=== PATIENT | female | born 1945 | race Caucasian/White ===

== ENCOUNTER 2025-03-04 09:54 | Emergency (ER) | payer MEDICARE, OTHER, SELFPAY ==
[2025-03-04 09:59] VITALS: BP 160/88
[2025-03-04 10:07] VITALS: BP 145/89; BMI 21.2
[2025-03-04] MEDS: TYLENOL 1000 MG PO (10:59)
[2025-03-04] MEDS: ADACEL 0.5 ML IM (10:59)
[2025-03-04] MEDS: KEFLEX 500 MG PO (10:59)
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
--- NOTE | 2025-03-04 12:28 | EDCM ---
Received consult and reviewed chart. I met with pt and her bedside in ED. Pt has a lrg wound and will need follow up wound care. I asked if they leave the home, said very rarely. Discussed wound care center but they would prefer VN,
agreeable to referral for [facility]. Referral placed in Care Port.
They recently moved from [place] to [facility], they have seen Dr. Yamileth Charles from [facility]. Pt's does not feel comfortable doing dressing changes.
== END 2025-03-04 12:37 | disposition home or self-care (01) ==
LOC: EMR 09:54
PROVIDERS: EMERGENCY PHYSICIAN Emergency Medicine
DX: S81.811A Laceration without foreign body, right lower leg, initial encounter (principal); S80.11XA Contusion of right lower leg, initial encounter; I73.9 Peripheral vascular disease, unspecified; F03.90 Unspecified dementia, unspecified severity, without behavioral disturbance, psychotic disturbance, mood disturbance, and anxiety; M06.9 Rheumatoid arthritis, unspecified; Z23 Encounter for immunization; Z79.52 Long term (current) use of systemic steroids; W22.03XA Walked into furniture, initial encounter; Y92.009 Unspecified place in unspecified non-institutional (private) residence as the place of occurrence of the external cause
CPT/HCPCS: 99283; 10140; 90471; 73590; 90715

== ENCOUNTER → 2025-03-06 10:31 | Outpatient (REF) | payer MEDICARE, OTHER, SELFPAY | LOC: WOUND 10:31 | PROVIDERS: ATTENDING PHYSICIAN Surgery | DX: L97.212 Non-pressure chronic ulcer of right calf with fat layer exposed (principal); S80.11XA Contusion of right lower leg, initial encounter; F03.C0 Unspecified dementia, severe, without behavioral disturbance, psychotic disturbance, mood disturbance, and anxiety; M06.9 Rheumatoid arthritis, unspecified; X58.XXXA Exposure to other specified factors, initial encounter | CPT/HCPCS: 99203 ==

== ENCOUNTER → 2025-03-20 13:25 | Outpatient (REF) | payer MEDICARE, OTHER, SELFPAY | LOC: WOUND 13:25 | PROVIDERS: ATTENDING PHYSICIAN Surgery | DX: L97.212 Non-pressure chronic ulcer of right calf with fat layer exposed (principal); S80.11XA Contusion of right lower leg, initial encounter; F03.C0 Unspecified dementia, severe, without behavioral disturbance, psychotic disturbance, mood disturbance, and anxiety; M06.9 Rheumatoid arthritis, unspecified; X58.XXXA Exposure to other specified factors, initial encounter | CPT/HCPCS: 97597 ==

== ENCOUNTER → 2025-03-28 13:38 | Outpatient (REF) | payer MEDICARE, OTHER, SELFPAY | LOC: WOUND 13:38 | PROVIDERS: ATTENDING PHYSICIAN Surgery | DX: L97.212 Non-pressure chronic ulcer of right calf with fat layer exposed (principal); S80.11XA Contusion of right lower leg, initial encounter; F03.C0 Unspecified dementia, severe, without behavioral disturbance, psychotic disturbance, mood disturbance, and anxiety; M06.9 Rheumatoid arthritis, unspecified | CPT/HCPCS: 11042; 11045 ==

== ENCOUNTER 2025-04-11 13:21 | Outpatient (REF) | payer MEDICARE, OTHER, SELFPAY | END 2025-04-11 23:59 | disposition home or self-care (01) | LOC: WOUND 13:21 | PROVIDERS: ATTENDING PHYSICIAN Surgery | DX: L97.212 Non-pressure chronic ulcer of right calf with fat layer exposed (principal); S80.11XA Contusion of right lower leg, initial encounter; F03.C0 Unspecified dementia, severe, without behavioral disturbance, psychotic disturbance, mood disturbance, and anxiety; M06.9 Rheumatoid arthritis, unspecified | CPT/HCPCS: 99213 ==

== ENCOUNTER 2025-05-13 13:43 | Outpatient (REF) | payer MEDICARE, OTHER, SELFPAY | END 2025-05-13 23:59 | disposition home or self-care (01) | LOC: WOUND 13:43 | PROVIDERS: ATTENDING PHYSICIAN Registered Nurse | DX: L97.212 Non-pressure chronic ulcer of right calf with fat layer exposed (principal); S80.11XA Contusion of right lower leg, initial encounter; F03.C0 Unspecified dementia, severe, without behavioral disturbance, psychotic disturbance, mood disturbance, and anxiety; M06.9 Rheumatoid arthritis, unspecified; X58.XXXA Exposure to other specified factors, initial encounter | CPT/HCPCS: 99213 ==